=== PATIENT | male | born 1985 | race Two or more races ===

== ENCOUNTER 2018-09-23 07:42 | Emergency (ER) | payer OTHER ==
[~2018-09-23] VITALS: Ht 170.2 cm; Wt 77.1 kg
--- NOTE | 2018-09-23 07:50 | NUR ---
ED Nurse Note: Pt walked in ED c/o N/V, denies diarrhea. ERMD at bedside.
[2018-09-23 07:52] VITALS: BP 131/84
--- NOTE | 2018-09-23 07:59 | Emergency Room Report ---
History of Present Illness General Chief Complaint: Abdominal Pain Source: Patient Present Illness HPI 32-year-old male no past medical history presents with epigastric and right upper quadrant pain, he endorses it as sharp, achy, burning, moderate severity, no radiation of pain patient endorses some nausea, he endorses that eating aggravates the pain, alleviated by not eating, no chest pain, no shortness of breath, no fever no chills, no dysuria, patient states the pain started 1 day prior to arrival. Allergies: Coded Allergies: No Known Allergies (Unverified , 09/23/18) Patient History Past Medical History: see triage record Reviewed Nursing Documentation: PMH: Agreed; PSxH: Agreed Nursing Documentation-PMH Past Medical History: No Stated History Review of Systems Constitutional: Denies: chills, fever Eye: Denies: blurred vision, double vision ENT: Denies: throat pain, nasal discharge Respiratory: Denies: cough, shortness of breath Cardiovascular: Denies: chest pain, palpitations Gastrointestinal: Reports: abdominal pain, nausea, vomiting; Denies: diarrhea Genitourinary: Denies: dysuria, pain Musculoskeletal: Denies: back pain, muscle pain Skin: Denies: rash, lesions Neurological: Denies: headache, focal weakness Hematologic/Lymphatic: Denies: easy bleeding, easy bruising All Other Systems: negative except mentioned in HPI Physical Exam Vital Signs Date Time Temp Pulse Resp B/P (MAP) Pulse Ox O2 Delivery O2 Flow Rate FiO2 09/23/18 07:44 98.2 68 19 119/78 (92) 96 Room Air Sp02 EP Interpretation: reviewed, normal General Appearance: well appearing, no apparent distress, alert Head: normocephalic, atraumatic Eyes: bilateral eye PERRL, bilateral eye EOMI ENT: uvula midline, moist mucus membranes Neck: supple, thyroid normal, supple/symm/no masses Respiratory: lungs clear, no respiratory distress, no retraction, no accessory muscle use Cardiovascular #1: normal peripheral pulses, regular rate, rhythm, no edema, no gallop, no murmur Gastrointestinal: soft, tenderness - Patient with epigastric, right upper quadrant pain, positive Marrero's, neg McBurney's, negative Rovsing's no suprapubic Musculoskeletal: normal inspection Neurologic: alert, oriented x3 Psychiatric: mood/affect normal Skin: no rash, warm/dry Medical Decision Making Diagnostic Impression: Primary Impression: Abdominal pain ER Course 32-year-old male with abdominal pain, concern for cholecystitis versus nephrolithiasis, versus ureterolithiasis versus appendicitis, CT abdomen and pelvis negative, ultrasound negative, lab work unremarkable, pain was well- controlled with morphine, will disposition patient home with return precautions doubt any acute pathology at this moment, patient feels better Laboratory Tests Test 09/23/18 08:00 09/23/18 08:45 White Blood Count 8.0 K/UL (4.8-10.8) Red Blood Count 4.98 M/UL (4.70-6.10) Hemoglobin 15.4 G/DL (14.2-18.0) Hematocrit 43.0 % (42.0-52.0) Mean Corpuscular Volume 86 FL (80-99) Mean Corpuscular Hemoglobin 31.0 PG (27.0-31.0) Mean Corpuscular Hemoglobin Concent 35.9 G/DL (32.0-36.0) Red Cell Distribution Width 10.7 % (11.6-14.8) L Platelet Count 180 K/UL (150-450) Mean Platelet Volume 8.7 FL (6.5-10.1) Neutrophils (%) (Auto) 71.3 % (45.0-75.0) Lymphocytes (%) (Auto) 20.0 % (20.0-45.0) Monocytes (%) (Auto) 7.7 % (1.0-10.0) Eosinophils (%) (Auto) 0.6 % (0.0-3.0) Basophils (%) (Auto) 0.4 % (0.0-2.0) Prothrombin Time 10.2 SEC (9.30-11.50) Prothrombin Time INR 1.0 (0.9-1.1) PTT 29 SEC (23-33) Sodium Level 138 MMOL/L (136-145) Potassium Level 3.7 MMOL/L (3.5-5.1) Chloride Level 102 MMOL/L (98-107) Carbon Dioxide Level 29 MMOL/L (21-32) Anion Gap 7 mmol/L (5-15) Blood Urea Nitrogen 9 mg/dL (7-18) Creatinine 0.9 MG/DL (0.55-1.30) Estimate Glomerular Filtration Rate > 60 mL/min (>60) Glucose Level 114 MG/DL (74-106) H Calcium Level 9.0 MG/DL (8.5-10.1) Total Bilirubin 1.0 MG/DL (0.2-1.0) Aspartate Amino Transferase (AST) 15 U/L (15-37) Alanine Aminotransferase (ALT) 19 U/L (12-78) Alkaline Phosphatase 62 U/L (46-116) Total Protein 8.2 G/DL (6.4-8.2) Albumin 4.2 G/DL (3.4-5.0) Globulin 4.0 g/dL Albumin/Globulin Ratio 1.0 (1.0-2.7) Lipase 147 U/L (73-393) Urine Color Yellow Urine Appearance Clear Urine pH 6.5 (4.5-8.0) Urine Specific [place] 1.010 (1.005-1.035) Urine Protein Negative (NEGATIVE) Urine Glucose (UA) Negative (NEGATIVE) Urine Ketones Negative (NEGATIVE) Urine Blood Negative (NEGATIVE) Urine Nitrite Negative (NEGATIVE) Urine Bilirubin Negative (NEGATIVE) Urine Urobilinogen Normal MG/DL (0.0-1.0) Urine Leukocyte Esterase Negative (NEGATIVE) EKG Diagnostic Results EKG Time: 08:18 EP Interpretation: NSR, rate 73, QTc 407, no acute ST elevations, normal axis Rate: normal Rhythm: NSR ST Segments: no acute changes Chest X-Ray Diagnostic Results Chest X-Ray Diagnostic Results : Chest X-Ray Ordered: Yes # of Views/Limited/Complete: 1 View Indication: Other - Preop EP Interpretation: Yes Interpretation: no consolidation, no effusion, no pneumothorax, no acute cardiopulmonary disease Impression: No acute disease Electronically Signed by: Robin Andres MD CT/MRI/US Diagnostic Results CT/MRI/US Diagnostic Results : Impression Procedure: CT Abdomen Pelvis WO Contrast Indication: Abdominal pain Technique: Spiral acquisitions obtained through the abdomen and pelvis. No oral or IV contrast utilized, per urinary stone protocol. Multiplanar reconstructions were generated. Total dose length product 782 mGycm. CTDIvol(s) 13.9 mGy. Dose reduction achieved using automated exposure control Comparison: none Findings: No renal or ureteral calculi demonstrated. No hydronephrosis or hydroureter. Lack of IV contrast limits assessment of the renal parenchyma. No gross renal parenchymal mass or cyst demonstrated. Lack of IV contrast limits assessment of the other solid organs. The liver, gallbladder, bile ducts, pancreas, spleen, adrenals are unremarkable. No retroperitoneal or mesenteric mass or adenopathy. No pelvic mass or adenopathy. No evidence of diverticulosis or diverticulitis. The appendix is not definitely demonstrated, but there are no findings to suggest acute appendicitis. No small bowel distention. No free or loculated intraperitoneal gas or fluid. There is a tiny fat-containing umbilical hernia. The distal esophagus, stomach, duodenum are unremarkable. The included lung bases demonstrate posterior dependent atelectatic changes. The bones are unremarkable. Impression: Negative for evidence of urinary stone disease, selective uropathy, or other acute or significant abnormality Incidental finding of small fat-containing umbilical hernia Abdomen: No acute processes evidence of cholecystitis Last Vital Signs Date Time Temp Pulse Resp B/P (MAP) Pulse Ox O2 Delivery O2 Flow Rate FiO2 09/23/18 07:52 98.2 70 19 131/84 96 Room Air Disposition: HOME, SELF-CARE Condition: Stable Scripts Famotidine (PEPCID AC) 20 Mg Tablet 20 MG PO BID, #60 TAB Prov: Robin Andres MD 09/23/18 Referrals: [facility] Brannon Coffey [facility] Patient Instructions: Abdominal Pain, Adult Additional Instructions: The patient was provided with discharge instructions, notified to follow-up with a primary care doctor and or specialist in the next 24-48 hours, and to return to the ED if they have worsening of their symptoms. Please note that this report is being documented using Babel[employer] technology. This can lead to erroneous entry secondary to incorrect interpretation by the dictating instrument. Robin Andres MD Sep 23, 2018 07:59
[2018-09-23] MEDS ORDERED: Morphine Sulfate 4mg/ml Inj (IV USE ONLY) IVP ONE (08:00)
--- NOTE | 2018-09-23 08:15 | NUR ---
ED Nurse Note: Xray at bedside.
[2018-09-23 08:17] LABS: BASOPHILS % (AUTO) 0.4 % (0.0-2.0); EOSINOPHILS % (AUTO) 0.6 % (0.0-3.0); HEMOGLOBIN 15.4 G/DL (14.2-18.0); MEAN CORPUSCULAR VOLUME 86 FL (80-99); MONOCYTES % (AUTO) 7.7 % (1.0-10.0); NEUTROPHILS % (AUTO) 71.3 % (45.0-75.0); PLATELET COUNT 180 K/UL (150-450); RED BLOOD COUNT 4.98 M/UL (4.70-6.10); RED CELL DISTRIBUTION WIDTH 10.7 % (11.6-14.8)
--- NOTE | 2018-09-23 08:25 | NUR ---
ED Nurse Note: U/S tech contacted.
[2018-09-23 08:28] LABS: ANION GAP 7 mmol/L (5-15); BLOOD UREA NITROGEN 9 mg/dL (7-18); CARBON DIOXIDE 29 MMOL/L (21-32); CHLORIDE 102 MMOL/L (98-107); CREATININE 0.9 MG/DL (0.55-1.30); POTASSIUM 3.7 MMOL/L (3.5-5.1); SODIUM 138 MMOL/L (136-145)
[2018-09-23 08:32] LABS: ALANINE AMINOTRANSFERASE 19 U/L (12-78); ALBUMIN 4.2 G/DL (3.4-5.0); ALKALINE PHOSPHATASE 62 U/L (46-116); ASPARTATE AMINO TRANSFERASE 15 U/L (15-37)
--- NOTE | 2018-09-23 08:56 | Diagnostic Imaging Report ---
Indication: Cough Technique: One view of the chest Comparison: none Findings: Lungs and pleural spaces are clear. Heart size is normal. Impression: No acute process
[2018-09-23] MEDS ORDERED: Bicillin LA 2.4MMU/4ML SYR IM ONE (09:00)
[2018-09-23] MEDS ORDERED: cefTRIAXone 1 GM in NS 55 ML IVPB ONE (09:00)
[2018-09-23] MEDS ORDERED: Azithromycin 250mg tab ORAL ONE (09:00)
[2018-09-23 09:13] LABS: APPEARANCE,URINE CLEAR; BILIRUBIN, URINE NEGATIVE (NEGATIVE); GLUCOSE, URINE (UA) NEGATIVE (NEGATIVE); KETONES,URINE NEGATIVE (NEGATIVE); LEUKOCYTE ESTERASE ,URINE NEGATIVE (NEGATIVE); NITRITE,URINE NEGATIVE (NEGATIVE); PH,URINE 6.5 (4.5-8.0); PROTEIN,URINE NEGATIVE (NEGATIVE); UROBILINOGEN,URINE NORMAL MG/DL (0.0-1.0)
[2018-09-23 09:17] LABS: COLOR,URINE YELLOW
[2018-09-23 09:35] VITALS: BP 125/75
[2018-09-23] MEDS ORDERED: NKM (09:41)
--- NOTE | 2018-09-23 09:44 | NUR ---
ED Nurse Note: US at bedside.
--- NOTE | 2018-09-23 10:29 | NUR ---
ED Nurse Note: Pt went down for CT non contrast in stable condition.
[2018-09-23 10:39] VITALS: BP 118/68
--- NOTE | 2018-09-23 10:39 | NUR ---
ED Nurse Note: Pt back from CT in stable condition
[2018-09-23 11:54] VITALS: BP 122/76
--- NOTE | 2018-09-23 12:22 | Diagnostic Imaging Report ---
Indication: Abdominal pain Technique: Spiral acquisitions obtained through the abdomen and pelvis. No oral or IV contrast utilized, per urinary stone protocol. Multiplanar reconstructions were generated. Total dose length product 782 mGycm. CTDIvol(s) 13.9 mGy. Dose reduction achieved using automated exposure control Comparison: none Findings: No renal or ureteral calculi demonstrated. No hydronephrosis or hydroureter. Lack of IV contrast limits assessment of the renal parenchyma. No gross renal parenchymal mass or cyst demonstrated. Lack of IV contrast limits assessment of the other solid organs. The liver, gallbladder, bile ducts, pancreas, spleen, adrenals are unremarkable. No retroperitoneal or mesenteric mass or adenopathy. No pelvic mass or adenopathy. No evidence of diverticulosis or diverticulitis. The appendix is not definitely demonstrated, but there are no findings to suggest acute appendicitis. No small bowel distention. No free or loculated intraperitoneal gas or fluid. There is a tiny fat-containing umbilical hernia. The distal esophagus, stomach, duodenum are unremarkable. The included lung bases demonstrate posterior dependent atelectatic changes. The bones are unremarkable. Impression: Negative for evidence of urinary stone disease, selective uropathy, or other acute or significant abnormality Incidental finding of small fat-containing umbilical hernia The CT scanner at [facility] is accredited by the [employer] and the scans are performed using protocols designed to limit radiation exposure to as low as reasonably achievable to attain images of sufficient resolution adequate for diagnostic evaluation.
[2018-09-23] MEDS ORDERED: PEPCID AC20 M2 PO (12:55)
[2018-09-23 12:58] VITALS: BP 114/71
--- NOTE | 2018-09-23 12:58 | NUR ---
ER DISCHARGE NOTE: Patient is cleared to be discharged per ERMD, pt is aox4, on room air, with stable vital signs. pt was given dc and prescription instructions, pt was able to verbalize understanding, pt id band and iv site removed without complications. pt is able to ambulate with steady gait. pt took all belongings.
--- NOTE | 2018-09-23 16:17 | Diagnostic Imaging Report ---
Indication: Epigastric and right upper quadrant pain, nausea Technique: Cerrato-scale and duplex images of the upper abdomen were obtained Comparison: Subsequent CT scan later the same day Findings: Gallbladder is unremarkable, without stones, wall thickening, nor pericholecystic fluid. Sonographic Marrero's sign is negative. Common bile duct measures 3 mm in diameter. No intrahepatic biliary ductal dilatation. Liver demonstrates normal echogenicity, no focal abnormality. It is borderline enlarged. Portal vein and hepatic veins are patent. Pancreas is unremarkable. Spleen is unremarkable. Left kidney measures 10.2 cm in length. Right kidney measures 9.9 cm length. Both kidneys demonstrate normal echogenicity. There is no hydronephrosis. Is a questionable echogenic focus in the right renal sinus. There is equivocal mild fullness right renal collecting system and a prominent extrarenal pelvis. Renal collecting system fullness decreases after voiding. Bladder is unremarkable and there are bilateral ureteral jets noted. Calculated postvoid volume 9 mL. Non-aneurysmal abdominal aorta . Impression: Borderline hepatomegaly. Otherwise essentially unremarkable exam Echogenic focus in the right renal sinus is presumably artifactual, as no calculi are demonstrated on subsequent CT Mild right renal fullness, decreased after voiding and not evident on subsequent CT
--- NOTE | 2018-09-25 14:37 | Cardiology Report ---
APPROVED REPORT EKG Measurement Heart [id number] Normal sinus rhythm Incomplete right bundle branch block Possible Inferior infarct, age undetermined Abnormal ECG
== END 2018-09-23 12:58 | disposition home or self-care (01) ==
LOC: EMR 07:57
DX: R10.13 Epigastric pain (principal); R10.11 Right upper quadrant pain; K42.9 Umbilical hernia without obstruction or gangrene
CPT/HCPCS: 36415; 71045; 74176; 76700; 80053; 81003; 83690; 85025; 85610; 85730; 93005; 96361; 96374; 96375; 99284; J2270; J2405; S0028

== ENCOUNTER 2019-11-11 12:06 | Emergency (ER) | payer MEDICAID, OTHER ==
[~2019-11-11] VITALS: Ht 182.9 cm; Wt 77.1 kg
[~2019-11-11 12:06] MED LIST: NKM; PEPCID AC20 M2 PO
[2019-11-11 12:15] VITALS: BP 125/79
[2019-11-11] MEDS ORDERED: HYDROcodone/Acetamin 5/325 tab ORAL ONE (12:30)
[2019-11-11] MEDS ORDERED: Ketorolac 30mg Inj IM ONE (12:30)
[2019-11-11] MEDS ORDERED: Methocarbamol 750mg tab ORAL ONE (12:30)
--- NOTE | 2019-11-11 12:32 | Emergency Room Report ---
History of Present Illness General Chief Complaint: Back Pain-No Injury Source: Patient Present Illness HPI Disclaimer: Please note that this report is being documented using DRAGON technology. This can lead to erroneous entry secondary to incorrect interpretation by the dictating instrument. HPI: 33-year-old male presents for evaluation of back pain. States he was bending over to pick something up 3 days ago felt a sudden pain in his back. Pain radiates from the right lower back down the right leg. Denies numbness, tingling or weakness. States his range of motion is limited as movement of the right lower extremity causes pain in his upper back. Denies fever, chills. No trauma reported. Has been having normal bowel movements and denies urinary retention or difficulty passing urine. Denies prior history of back injury. PMH: Reviewed PSH: Reviewed Allergies: Denied Social Hx: Denies drug or alcohol abuse Allergies: Coded Allergies: No Known Allergies (Unverified , 09/23/18) COVID-19 Screening Contact w/high risk pt: No Experienced COVID-19 symptoms?: No COVID-19 Testing performed [employer]PERATOR: No Nursing Documentation-PMH Past Medical History: No Stated History Review of Systems All Other Systems: negative except mentioned in HPI Physical Exam Vital Signs Date Time Temp Pulse Resp B/P (MAP) Pulse Ox O2 Delivery O2 Flow Rate FiO2 11/11/19 12:11 98.2 67 18 125/79 (94) 98 Room Air General: Awake and alert, no acute distress HEENT: NC/AT. EOMI. Resp: Normal work of breathing Skin: Intact. No abrasions, laceration or rash over the exposed skin MSK: Normal tone and bulk. Moving all extremities. No obvious deformity. Neuro: Awake and alert. Mentating appropriately. Sensation intact over the dermatomes of lower extremities. No saddle anesthesia. Spine: No tenderness, step-off or deformity in the lumbar sacral spine. Moderate right-sided paraspinal tenderness extending over the right iliac crest. Medical Decision Making Diagnostic Impression: Primary Impression: Back pain ER Course 33 old male presents for evaluation of atraumatic back pain. No evidence of cauda equina syndrome or spinal epidural abscess. Patient is neurologically intact. Symptoms most consistent with strain, herniated disc, musculoskeletal back pain. Treated with analgesics, muscle relaxers, lidocaine patch. We will follow-up on an outpatient basis. No indication for emergent imaging at this time. Last Vital Signs Date Time Temp Pulse Resp B/P (MAP) Pulse Ox O2 Delivery O2 Flow Rate FiO2 11/11/19 12:15 98.2 67 18 125/79 98 Room Air Disposition: HOME, SELF-CARE Condition: Stable Scripts Hydrocodone Bit/Acetaminophen 5-325* (NORCO 5-325 TABLET*) 1 Each Tablet 1 TAB ORAL Q6H PRN for FOR PAIN, #6 TAB 0 Refills Prov: Mino Philippe MD 11/11/19 Lidocaine Patch* (Lidoderm Patch*) 1 Each Adh..patch 1 PATCH TOPIC DAILY, #7 PATCH 0 Refills Patch(es) may remain in place for up to 12 hours in any 24-hour period. Prov: Mino Philippe MD 11/11/19 Methocarbamol* (ROBAXIN-750*) 750 Mg Tablet 750 MG PO QID, #28 TAB 0 Refills Prov: Mino Philippe MD 11/11/19 Ibuprofen* (MOTRIN*) 600 Mg Tablet 600 MG ORAL Q6H PRN for For Pain, #30 TAB 0 Refills Prov: Mino Philippe MD 11/11/19 Mino Philippe MD Nov 11, 2019 12:32
[2019-11-11] MEDS ORDERED: ROBAXIN-750750 MG PO (12:41)
[2019-11-11] MEDS ORDERED: NORCO 5-325 TA1 EAC1 ORAL (12:41)
[2019-11-11] MEDS ORDERED: IBUPROFEN600 M1 ORAL (12:41)
[2019-11-11] MEDS ORDERED: LIDODERM700 M1 TOPIC (12:41)
[2019-11-11 12:52] VITALS: BP 131/76
== END 2019-11-11 12:54 | disposition home or self-care (01) ==
LOC: EMR 12:33
DX: M54.5 Low back pain (principal)
CPT/HCPCS: 96372; J1885; Z7502; 99283